=== PATIENT | male | born 1970 | race Caucasian/White ===

== ENCOUNTER 2024-07-15 02:43 | Emergency (ER) | payer SELFPAY ==
[2024-07-15] MEDS: Lidocaine 1% 5 ML VIAL INJECT ONE (03:11)
[2024-07-15] MEDS: Diphtheria,Pertussis(Acell),Tetanus Vaccine 0.5 ML Syringe IM ONE (03:23)
[2024-07-15] MEDS ORDERED: Bacitracin/Neomycin/Polymyxin B Oint 0.9 GM U/D Packet TOP SCH (03:30)
[2024-07-15] MEDS: Bacitracin/Neomycin/Polymyxin B Oint 0.9 GM U/D Packet TOP ONE (03:33)
== END 2024-07-15 03:52 | disposition home or self-care (01) ==
LOC: CC.ED 02:43
DX: S01.21XA Laceration without foreign body of nose, initial encounter (principal); Z23 Encounter for immunization; W01.0XXA Fall on same level from slipping, tripping and stumbling without subsequent striking against object, initial encounter
CPT/HCPCS: 12011; 90471; 90715; 99282-25; 99283; A9270-GY; J3490